=== PATIENT | male | born 1990 | race Caucasian/White ===

== ENCOUNTER 2019-06-26 12:43 | Emergency (ER) | payer OTHER ==
[2019-06-26] MEDS ORDERED: NS 0.9% 1000 ML** 2,000 ML IV ONE (12:49)
[2019-06-26] MEDS ORDERED: Ketorolac INJ* 30 MG/ML 1 ML VIAL IV ONE (12:49)
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
[2019-06-26 13:15] LABS: ABS Monocytes 0.6 10^3/ul (0-0.8); Eosinophil % 0.1 %; Hematocrit 45 % (42-52); Hemoglobin 15.3 g/dL (14.0-18.0); Lymphocyte % 10.4 %; Mean Corpuscular HGB Conc 34 g/dL (31-36); Mean Corpuscular Hemoglobin 32 pg (27-31); Mean Corpuscular Volume 93 fL (80-94); Mean Platelet Volume 8.7 fL (7.4-10.4); Platelet Count 129 10^3/uL (150-450); Red Blood Count 4.84 10^6 /uL (4.18-5.48); Red Cell Distribution Width 13 % (10-15); White Blood Count 9.7 10^3/uL (3.5-10.8)
[2019-06-26 13:24] LABS: INR 1.09 (0.82-1.09)
[2019-06-26 13:34] LABS: ALT 35 U/L (7-52); AST 27 U/L (13-39); Albumin 5.1 g/dL (3.2-5.2); Alkaline Phosphatase 28 U/L (34-104); Amylase 50 U/L (29-103); Anion Gap 9 mmol/L (2-11); BUN/Creatinine Ratio 25.7 (8-20); Blood Urea Nitrogen 26 mg/dL (6-24); CO2 Carbon Dioxide 26 mmol/L (22-32); Calcium 9.9 mg/dL (8.6-10.3); Chloride 101 mmol/L (101-111); Creatine Kinase 265 U/L (10-223); EGFR Non-African American 89.3 (>60); Globulin 2.5 g/dL (2-4); Glucose 110 mg/dL (70-100); Potassium 3.4 mmol/L (3.5-5.0); Sodium 136 mmol/L (135-145); Total Protein 7.6 g/dL (6.4-8.9)
[2019-06-26 13:59] LABS: Alcohol < 10 mg/dL (<10)
[2019-06-26] MEDS ORDERED: Potassium Chlor TAB* 20 MEQ TAB.ER PO ONE (17:17)
[2019-06-26 17:52] VITALS: BP 124/56
== END 2019-06-26 17:51 | disposition home or self-care (01) ==
LOC: ED 12:43
DX: S82.254A Nondisplaced comminuted fracture of shaft of right tibia, initial encounter for closed fracture (principal); V86.56XA Driver of dirt bike or motor/cross bike injured in nontraffic accident, initial encounter; Y92.821 Forest as the place of occurrence of the external cause; R22.1 Localized swelling, mass and lump, neck; J45.909 Unspecified asthma, uncomplicated
CPT/HCPCS: 36415; 70450; 71045; 72125; 80053; 80320; 82150; 82550; 83605; 83690; 85025; 85610; 96361; 96374; 99285; A9270-GY; G0480; J1885